=== PATIENT | male | born 1985 | race Caucasian/White ===

== ENCOUNTER 2018-04-16 05:26 | Day surgery (SDC) | payer OTHER ==
[~2018-04-16] VITALS: Ht 185.4 cm; Wt 95.3 kg
--- NOTE | ~2018-04-16 | PATH ---
[facility] [address] [place] [address] PATHOLOGY RPT PROCEDURE Name: SERGIO EAST Room #: DEP [facility] M.R.#: [id number] Admission: 04/16/18 Date of : 85 Discharge: 04/16/18 Report #: [id number] Path Case #: [id number] [facility] Accession Number: [id number] . 01 Material submitted: . SOFT TISSUE MASS FROM RIGHT UPPER ARM . 01 Clinical history: . Mass right upper arm . 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 - Completely excised. - Negative for malignancy. . (IUV:mml; 04/18/2018) QLM/04/18/2018 . 02 Electronically signed: . Nenita White MD, Pathologist NPI- [id number] . 01 Gross description: . The specimen is received in formalin, labeled "Sergio East, mass from right upper arm, silk suture is proximal". Received is a segment of yellow-dumas fibroadipose tissue measuring 2.4 x 1.3 x 1.8 cm in greatest dimensions. There is a vessel present measuring 1.5 cm in length by 0.3 cm in diameter with a suture attached designating this aspect as the proximal margin, which will arbitrarily be designated as the 12:00 margin. The surgical margins are inked as follows: 12 to 3:00-yellow, three to 6:00-blue, and six to 12:00-black. Sectioning reveals a possible cystic structure measuring 1.5 cm filled with red-brown friable material, as well as multiple light dumas nodules ranging in size from 0.2 to 0.5 cm. The specimen is submitted entirely from 12:00 to 6:00 aspects in cassettes A1 through A4. (CAA; 04/17/2018) QAC/QAC . 02 Pathologist provided ICD-10: D18.00 . 02 CPT . 751622 Performed at: 01 [place] [address] PATHOLOGY RPT PROCEDURE Name: SERGIO EAST Room #: DEP [facility] M.R.#: [id number] Admission: 04/16/18 Date of : 85 Discharge: 04/16/18 Report #: [id number] Path Case #: [id number] [address] [facility] [address], [place], [place] [id number] MD Augustine Cisneros MD Phone: [phone] Performed at: [address] [id number] MD Nenita White MD Phone: [phone]
--- NOTE | ~2018-04-16 | O ---
[facility] [place] [address] OPERATIVE REPORT Name: SERGIO EAST Room #: 150-5 [facility]#: [id number] Admission: 04/16/18 Attend Phys: Joshua Remy MD Discharge: Date of : 85 Report #: [id number] THIS REPORT FOR: //name// CC: [facility] physician/PCP Maycol Remy DATE OF SERVICE: 04/16/[address] Joshua Remy and Dr. Mj Hernandez. PREOPERATIVE DIAGNOSIS: Vascular soft tissue mass in the right upper arm. POSTOPERATIVE DIAGNOSIS: Vascular soft tissue mass in the right upper arm. PROCEDURE: Excision of a deep subfascial venous vascular mass of the right upper arm. SURGEON: Joshua Remy MD ANESTHESIA: Local. DESCRIPTION OF PROCEDURE: The patient was brought to the operating room and placed on operative table in the supine position. Right arm was placed on an arm board. Right arm was then prepped and draped in a sterile fashion. Skin and subcutaneous tissue were then infiltrated with 0.5% Marcaine and 1% Xylocaine in a 1:1 mixture. A longitudinal incision was performed on the extremity over this mass using a #15 scalpel blade. Hemostasis obtained using electrocautery. Dissection was carried down through subcutaneous tissue to a fairly large, what appeared to be a venous vascular mass. It was carefully dissected free and I identified the afferent-efferent venous supply to this mass. There were a couple of small side branches that were individually ligated. After completely dissecting it free and obtaining proximal and distal margins, the vein was clamped, tied and excised. I left a silk suture on the proximal margin of the mass and this was sent to pathology. Meticulous hemostasis was checked and obtained using electrocautery and found to be intact. The fascial and subcutaneous layers were closed using interrupted 2-0 chromic sutures and the skin then closed with a running 4-0 subcuticular Vicryl stitch. The wound was then dressed with Mastisol, 1/2-inch Steri-Strips cut in half, Telfa, 4 x 4 gauze, sponge, Kerlix, and tape. The patient was then taken to the preoperative area, awake, alert and in good condition. Estimated blood loss was [facility] [address] [place] [address] OPERATIVE REPORT Name: SERGIO EAST Room #: 150-5 [facility]#: [id number] Admission: 04/16/18 Attend Phys: Joshua Remy MD Discharge: Date of : 85 Report #: [id number] approximately 5 mL and the patient tolerated the procedure well. All sponge, lap and instrument counts were correct x 2. By: [id number] Joshua Remy MD /nt
[~2018-04-16 05:26] MED LIST: ANDROGEL5 GM TOP; LOMOTIL TABLET1 EACH PO; PRILOSEC 20 MG20 MG PO; PROZAC 10 MG CA10 MG PO; ZOFRAN4 MG PO
== END 2018-04-16 13:05 | disposition home or self-care (01) ==
LOC: OR 05:26 → TBA 05:27 → OR 08:52
DX: D18.09 Hemangioma of other sites (principal); G47.33 Obstructive sleep apnea (adult) (pediatric); K21.9 Gastro-esophageal reflux disease without esophagitis; Z79.899 Other long term (current) drug therapy; Z88.8 Allergy status to other drugs, medicaments and biological substances
CPT/HCPCS: 50010; 50101; 50386; 50403; 56524